=== PATIENT | female | born 1960 | race African-American/Black ===

== ENCOUNTER → 2017-05-12 | Outpatient (CLI) | payer BC, OTHER ==
[~2017-05-12] MED LIST: ALLEGRA30 MG PO; AMOXICILLIN 50500 M1 PO; DAILY VALUE1 EACH PO; PEPCID AC10 M1 PO; PROTONIX PO
== END ==
LOC: RAD 02:56
DX: Z12.31 Encounter for screening mammogram for malignant neoplasm of breast (principal)

== ENCOUNTER → 2018-02-01 | Outpatient (CLI) | payer BC, OTHER | LOC: RAD 04:20 | DX: R92.0 Mammographic microcalcification found on diagnostic imaging of breast (principal); R92.8 Other abnormal and inconclusive findings on diagnostic imaging of breast ==

== ENCOUNTER → 2019-05-16 | Outpatient (CLI) | payer BC, OTHER | LOC: EDSTATUS 04-27 12:25 → RAD 04-27 12:33 | DX: Z12.31 Encounter for screening mammogram for malignant neoplasm of breast (principal) ==

== ENCOUNTER → 2019-06-01 | Outpatient (CLI) | payer BC, OTHER | LOC: NUC 09:57 | DX: M81.0 Age-related osteoporosis without current pathological fracture (principal); M85.89 Other specified disorders of bone density and structure, multiple sites; Z78.0 Asymptomatic menopausal state ==